=== PATIENT | male | born 1995 | race Caucasian/White ===

== ENCOUNTER 2018-07-16 20:35 | Inpatient (IN) ==
--- NOTE | 2018-07-16 21:35 | PROVIDER DOCUMENTATION ---
HPI-General Adult - General Chief Complaint: Extremity Pain Stated Complaint: EXTREMITY SWELLING Time Seen by Provider: 07/16/18 21:17 Source: patient Allergies/Adverse Reactions: Patient Allergies Allergy/AdvReac Type Severity Reaction Status Date / Time No Known Allergies Allergy Verified 07/16/18 20:46 Home Medications: Home Medication List Medication Instructions Recorded Confirmed Last Taken Type Enalapril Maleate 60 mg PO DAILY 02/24/18 07/16/18 07/02/18 History Furosemide 1 tab PO DAILY 07/16/18 07/16/18 Unknown History Potassium Chloride E.r. [Micro-K] 10 meq PO BID 07/16/18 07/16/18 Unknown History - History of Present Illness -Gen Adult Nature of Presenting Problems: 23yom present to ER with c/o swelling, redness, warm to touch of RLE. Reports swelling x4-5 weeks reports swelling increased this morning. Pt reports being seen here and [facility] ER for same complaint. Pt reports he has had nephrotic syndrome since he was 1 year old. Location of Pain/Injury: reports: lower extremity Pain Radiation: reports: no radiation Quality of Pain: reports: aching, throbbing Onset/Duration: reports: other (4-5 weeks) Timing: reports: still present, getting worse Associated Symptoms: denies: chest pain, fever/chills, shortness of breath, trouble walking Review of Systems - Adult - REVIEW OF SYSTEMS - ADULT Constitutional: reports: no symptoms reported. denies: fever Eyes: reports: no symptoms reported Ears, Nose, Mouth & Throat: reports: no symptoms reported Cardiovascular: reports: no symptoms reported. denies: chest pain, orthopnea, palpitations Respiratory: reports: no symptoms reported. denies: shortness of breath Gastrointestinal: reports: no symptoms reported Genitourinary: reports: no symptoms reported Musculoskeletal: reports: see HPI, other (edema and redness to RLE) Integumentary: reports: no symptoms reported Neurological: reports: no symptoms reported Psychiatric: reports: no symptoms reported Endocrine: reports: no symptoms reported Hematologic/Lymphatic: reports: no symptoms reported Allergic/Immunologic: reports: no symptoms reported All Other Systems: Reviewed and Negative Past History - Adult - PAST MEDICAL HISTORY-ADULT Review of Records: reports: Old Records Reviewed, Nursing Assessment Review, Medications Reviewed Genitourinary: reports: other (Nephrotic syndrome) - PRIOR SURGERIES/PROCEDURES Surgical/Procedure History: reports: tonsillectomy, hernia repair - IMMUNIZATION STATUS Childhood Immunizations: See Nurse Assessment Flu Vaccine: See Nurse Assessment - FAMILY HISTORY Family History: reviewed, not pertinent Physical Exam-General - PHYSICAL EXAM-ADULT Initial Vital Signs Reviewed: Yes - CONSTITUTIONAL General Appearance: alert, no apparent distress - HEAD, EARS, NOSE, MOUTH & THROAT HENMT: moist mucous membranes - NECK Neck: full range of motion, supple, normal inspection - RESPIRATORY Respiratory: lungs clear, normal breath sounds - CARDIOVASCULAR Cardiovascular: tachycardia - GASTROINTESTINAL (ABDOMEN) Abdominal Exam: normal bowel sounds - MUSCULOSKELETAL Back Exam: normal inspection, no vertebral tenderness Extremity: normal range of motion, normal gait, normal capillary refill, erythema (RLE), pedal edema (3+ BLE), tenderness (RLE), other (warm to touch to RLE). negative: deformity - SKIN Integumentary: warm/dry - NEUROLOGIC Neurologic: grossly normal - PSYCHIATRIC Psych/Mental Status: oriented x 3 Progress - PLAN OF CARE/RESULTS Progress/Plan/Lab Results: Vital Signs - 8 hr 07/16/18 20:42 Temperature 100.1 F H Pulse Rate 144 H Respiratory Rate 20 Blood Pressure 167/97 O2 Sat by Pulse Oximetry 97 Orders Category Date Time Status CBC WITH DIFF [HEME] Stat Lab 07/16/18 21:27 Uncollected COMPREHENSIVE METABOLIC PANEL [CHEM] Stat Lab 07/16/18 21:03 Received ua [URINALYSIS PL W/POSS RFLX CULT] [URINALYSIS] Stat Lab 07/16/18 21:27 Uncollected Result Diagrams: 07/16/18 21:03 07/16/18 21:03 - REASSESSMENT Reassessment #1 Time Reassessed: 22:52 (Discussed pt with Dr Henderson, Dr Henderson and myself at beside to assess pt.) Reassessment #2 Time Reassessed: 23:31 (Discussed results with pt and possible admission. Pt agrees with plan. HR 118bpm while in room) Status: improving - XRAY 1 XRAY: Bilateral XRAY Study: Chest Impression: See EMR Report (Reviewed with Dr Henderson, no acute abnormality identified) - CONSULTS/PCP/HOSPITALIST Notification #1 *Consult/PCP/Hospitalist*: Hospitalist, Dr Adkins Time Discussed: 23:44 (possible admission) Reason/Comments: Order doppler in AM Consult Disposition: Admit Departure - Departure Date of Disposition Decision: 07/16/18 Time of Disposition Decision: 22:57 DIAGNOSIS: Nephrotic syndrome Edema Qualifiers: Edema type: unspecified Qualified Code(s): R60.9 - Edema, unspecified Cellulitis Qualifiers: Site of cellulitis: extremity Site of cellulitis of extremity: lower extremity Laterality: right Qualified Code(s): L03.115 - Cellulitis of right lower limb Disposition: ADMITTED INPATIENT 09 Certified Medical Emergency: Emergent Condition: Fair Referrals and Follow-Ups: None,PCP [Primary Care Provider] - - Critical Care Note This patient required my direct & personal management of CC.: No Attestation - Physician/ SAMMY Attestation Patient care was provided by Advanced Practice Provider:: Yes Advanced Practice Provider:: Willie Oquendo Advanced Practice Provider documentation review:: The Mid-level provider documentation, treatment plan and medical decision making was reviewed by the physician who agrees with all treatment and medical decision making by the P. The physician spent face to face time with patient:: Yes Advanced Practice Provider documentation review:: Supervising physician onsite and consulted in the evaluation and care of this patient. The physician did have a face to face encounter with the patient.
[2018-07-16 21:47] LABS: ESTIMATED GFR > 60
[2018-07-16 21:55] LABS: AGAP 12; ALBUMIN 1.6 g/dL (3.5-5.0); ALKALINE PHOSPHATASE 63 U/L (32-122); BUN 21 mg/dL (8-22); CALCIUM 7.7 mg/dL (8.8-10.2); CHLORIDE 99 mmol/L (98-107); COSMO 275; CREATININE 1.1 mg/dL (0.7-1.2); GLUCOSE 106 mg/dL (70-104); GOT 20 U/L (10-34); GPT 20 U/L (10-44); POTASSIUM 3.4 mmol/L (3.5-5.1); SODIUM 136 mmol/L (136-145); TCO2 25 mmol/L (25-35); TOTAL PROTEIN 4.5 g/dL (6.3-8.3)
[2018-07-16 22:00] LABS: BASO# 0.02 X1000 (0.0-0.2); BASO% 0.1 % (0.0-0.8); HEMATOCRIT 46.4 % (42.0-52.0); HEMOGLOBIN 16.8 g/dL (14.0-18.0); IMM GRAN% 0.3 % (0.0-0.5); LYMPH# 0.87 X1000 (1.2-3.4); LYMPH% 2.9 % (20.5-51.1); MCH 31.4 PG (27-31); MCHC 36.2 g/dL (33-37); MCV 86.7 FL (81-99); MONO% 6.7 % (1.7-9.3); MPV 11.3 FL (7.4-10.4); NEUT# 26.69 X1000 (1.4-6.5); PLT 284 X1000 (130-400); RBC 5.35 XMIL (4.7-6.1); RDW 11.7 % (11.5-14.5); WBC 29.68 X1000 (4.8-10.8)
[2018-07-16 22:27] LABS: BANDS 5 % (0-1); LYMPHS 1 % (21-51); MONO 2 % (1-9); SEGS 92 % (42-75)
[2018-07-16 22:37] LABS: BILIRUBIN URINE NEGATIVE (NEGATIVE); BLOOD URINE 2+ (NEGATIVE); CLARITY CLEAR (CLEAR); COLOR YELLOW; GLUCOSE URINE NEGATIVE (NEGATIVE); KETONE URINE NEGATIVE (NEGATIVE); LEUKOCYTES URINE TRACE (NEGATIVE); NITRITE URINE NEGATIVE (NEGATIVE); PH URINE 6.5; UROBILINOGEN URINE NORMAL
[2018-07-16] MEDS ORDERED: NS 1,000 ML IV ONE (22:41)
[2018-07-16] MEDS ORDERED: ROCEPHIN 1 GM in NS 50 ML IV ONE (22:45)
[2018-07-16 22:51] LABS: URINE SOURCE CLEAN CATCH
[2018-07-16 22:56] LABS: URINE BACTERIA 2+ /HFP; URINE EPITHELIAL CELLS <10 /HPF (<10); URINE WBC <10 /HPF (<10)
[2018-07-16] MEDS ORDERED: ROCEPHIN 2 GM in NS 50 ML IV ONE (23:02)
[2018-07-16] MEDS ORDERED: ROCEPHIN ONE ×2 (23:08→23:10)
[2018-07-16] MEDS ORDERED: NS 100 ML ONE (23:11)
[2018-07-16 23:20] LABS: PROTIME 13.7 Seconds (11.0-16.0)
[2018-07-16 23:21] LABS: PTT 37.8 Seconds (22.3-41.8)
[2018-07-16] MEDS ORDERED: TYLENOL PO ONE (23:44)
--- NOTE | 2018-07-17 00:05 | EKG Report ---
Test Performed on : 12/09/2010 6:28:42 PM Test Reason : tachycardia Blood Pressure : / mmHG Vent. Rate : 086 BPM Atrial Rate : 086 BPM P-R Int : 158 ms QRS Dur : 086 ms QT Int : 356 ms P-R-T Axes : 076 060 062 degrees QTc Int : 426 ms * Pediatric ECG analysis * Normal sinus rhythm. Normal ECG No previous ECGs available Unconfirmed Result
--- NOTE | 2018-07-17 06:05 | Diag Imaging Result Doc PS360 ---
EXAM: CHEST-1 VIEW HISTORY: sepsis protocol TECHNIQUE: Chest two view COMPARISON: None. FINDINGS: The lungs are well expanded. The heart is not enlarged. The vessels are not distended. There are no infiltrates. No effusion identified. IMPRESSION: No pneumonia. Electronically signed by Deepak Mcgowan 07/17/2018 6:03 AM
[2018-07-17] MEDS ORDERED: VANCOMYCIN IV PER PHARMACY MISC SCH (08:00)
[2018-07-17 08:01] LABS: BASO# 0.02 X1000 (0.0-0.2); BASO% 0.1 % (0.0-0.8); EOS# 0.02 X1000 (0.0-0.7); EOS% 0.1 % (0.0-10.0); HEMATOCRIT 44.1 % (42.0-52.0); HEMOGLOBIN 15.4 g/dL (14.0-18.0); IMM GRAN# 0.06 X1000 (0.0-0.04); IMM GRAN% 0.3 % (0.0-0.5); LYMPH# 2.09 X1000 (1.2-3.4); LYMPH% 9.8 % (20.5-51.1); MCH 31.4 PG (27-31); MCHC 34.9 g/dL (33-37); MCV 89.8 FL (81-99); MONO# 1.71 X1000 (0.11-0.59); MPV 11.1 FL (7.4-10.4); NEUT% 81.7 % (42.2-75.2); PLT 125 X1000 (130-400); RBC 4.91 XMIL (4.7-6.1); RDW 12.1 % (11.5-14.5)
[2018-07-17 08:18] LABS: AGAP 9; BUN 22 mg/dL (8-22); CALCIUM 7.1 mg/dL (8.8-10.2); CHLORIDE 102 mmol/L (98-107); COSMO 273; ESTIMATED GFR > 60; GLUCOSE 95 mg/dL (70-104); POTASSIUM 3.9 mmol/L (3.5-5.1); SODIUM 135 mmol/L (136-145); TCO2 24 mmol/L (25-35)
[2018-07-17] MEDS: LASIX PO SCH (08:43)
[2018-07-17] MEDS: CLINDAMYCIN 600 MG/D5W 600 MG/50 ML IVPB IV SCH ×2 (08:43→15:02)
[2018-07-17] MEDS: KLOR-CON PO SCH ×2 (08:43→22:44)
[2018-07-17] MEDS: VANCOMYCIN 2,000 MG in NS 500 ML IV SCH ×2 (09:31→22:46)
[2018-07-17 09:43] LABS: LYMPHS 10 % (21-51); MONO 5 % (1-9); SEGS 85 % (42-75)
[2018-07-17] MEDS: VASOTEC PO SCH (10:40)
--- NOTE | 2018-07-17 10:56 | HISTORY AND PHYSICAL ---
PRIMARY CARE PHYSICIAN: None. CHIEF COMPLAINT: Right lower extremity redness, swelling, and warmth to touch that had progressively worsened. HISTORY OF PRESENTING ILLNESS: This is a 23-year-old male who presents to [facility] ER with complaints of right lower extremity edema, erythema, and warmth to touch. States that he has had swelling for about 4-5 weeks that increased on the day of arrival. He went to [facility] recently and received Lasix 80 mg which helped relieve his symptoms he states. He continued the higher dose of diuretic at home for 3 days but over this past weekend the edema increased again. He was started on prednisone taper as he has nephrotic syndrome. Then yesterday he noticed that the area was red and hot to touch and so he came to the emergency room. The workup showed a white blood cell count of 29.68, BUN and creatinine of 21 and 1.1. His calcium is 7.7, albumin 1.6, with a corrected calcium at 9.6. Plasma lactate was normal at 1.1. Urinalysis did show 3+ protein, a trace of white blood cells, 2+ bacteria. We did do a chest x-ray that showed no pneumonia and an EKG that showed normal sinus rhythm at 86. So, he is admitted for further evaluation and treatment. PAST MEDICAL HISTORY: Nephrotic syndrome diagnosed at 18 months with the last exacerbation in 2014 with hospitalization at [facility] in [place] and a pulmonary embolism. PAST SURGICAL HISTORY: Tonsillectomy, ACL repair of the right knee in March of 2008, a cyst removed from the chest wall. FAMILY HISTORY: Reviewed and noncontributory. SOCIAL HISTORY: Currently lives with his father and his girlfriend. Denies any tobacco, alcohol, or illicit drug use. ALLERGIES: He has no known drug allergies. HOME MEDICATIONS: Enalapril 60 mg p.o. daily, Lasix 20 mg p.o. daily, and potassium 10 mEq p.o. b.i.d. LABORATORY DATA: Showed a white blood cell count of 29.68, hemoglobin 16.8, hematocrit 46.4, platelets 284,000. Repeat this morning shows the white blood cell count is down to 21.30. PT and INR of 13.7 and 1. Sodium 136, potassium 3.4, chloride 99, CO2 25, BUN of 21, with a creatinine of 1.1, glucose 106, calcium of 7.7, with an albumin of 1.6, corrected calcium is 9.6. Creatine kinase of 159. Troponin less than 0.010. Plasma lactate of 1.1. Urinalysis showed 3+ protein, 2+ blood, trace white blood cells, and 2+ bacteria. Chest x-ray showed no pneumonia. EKG showed normal sinus rhythm at 86. REVIEW OF SYSTEMS: He denied any fever, chills, blurred vision, dizziness, chest pain, coughing, shortness of breath. Denied any abdominal pain, constipation, diarrhea, burning or hurting with urination. He does have pain to his right lower extremity with tenderness to touch and swelling. PHYSICAL EXAMINATION: VITAL SIGNS: On arrival he had a temperature of 100.1 degrees, pulse of 144, respirations 20, blood pressure 167/97, saturating 97% on room air. Currently his temperature is down to 98.3 and his blood pressure is down to 162/80. GENERAL: This is a 23-year-old male who is lying in the bed and answers questions appropriately. HEENT: Normocephalic, atraumatic. Normal ENT inspection. Oropharynx and nares are clear. Eyes: Pupils are equal, round, reactive to light and accommodation. Extraocular movements are intact. NECK: Normal inspection. Normal range of motion. LUNGS: Clear to auscultation bilaterally with equal lung expansion and chest wall movement. HEART: With regular rate and rhythm. No murmurs, rubs, or gallops. ABDOMEN: Soft, nontender, nondistended. Bowel sounds are present x4 quadrants. MUSCULOSKELETAL: He has 5/5 strength x4 extremities. His right lower extremity is noted to be erythematous, edematous, warm to touch. Skin markings have had been placed surrounding the erythema. No open area noted at this time. NEUROLOGICAL: The cranial nerves 2-12 appear grossly intact. ASSESSMENT: 1. Cellulitis of the right lower extremity. 2. Leukocytosis secondary to #1. 3. Nephrotic syndrome, history of. 4. Rule out deep vein thrombosis. PLAN: He has been admitted to the medical unit. Placed on a regular diet. We are going to obtain a right lower extremity ultrasound to rule out a DVT. Blood cultures x2 and a urine culture are pending. He was placed on clindamycin 600 mg IV q.8, vancomycin per pharmacy protocol. We will continue his home medications as previously identified. He is interested in obtaining an adult warehouse trainer. He has been with a engineer systems and has aged out and has not seen 1 in a couple of years. So we will set him up with outpatient follow-up with Dr. Clemente, Nephrology here in [place] once he is discharged. We will give him the physician referral line also; he needs to obtain a primary care physician. Further orders after being seen by attending. We will recheck a CBC and a BMP in the a.m. I will also discuss with attending on whether not he needs to be on any steroids at this time. Dictated by KISHOR Pennington for Jose A Barron MD cc: KISHOR Pennington MD
--- NOTE | 2018-07-17 13:14 | Extremity Venous Study ---
EXAM: Venous U/S Right Leg HISTORY: RLE edema and redness TECHNIQUE: Right lower extremity venous Doppler ultrasound COMPARISON: None. FINDINGS: There is good flow and compressibility of the right lower extremity. No thrombus identified. Normal augmentation. IMPRESSION: No deep venous thrombosis identified. Electronically signed by Deepak Mcgowan 07/17/2018 1:12 PM
[2018-07-17] MEDS ORDERED: TYLENOL PO PRN (20:59)
[2018-07-17] MEDS ORDERED: MOTRIN PO PRN (20:59)
--- NOTE | 2018-07-18 01:43 | HISTORY AND PHYSICAL ---
SUBJECTIVE: The patient seen and examined by me face to face. All the laboratory images and vital signs were reviewed. This patient presented with redness at the level of his right lower extremity. I do not see any specific wound that can cause this cellulitis. As per the patient, he has been having some pain and swelling for a few weeks now, at least a month. He has a history of kidney problems specifically nephrotic syndrome, and apparently he has not been seen by a check pilot for a very long time, at least 1-1/2 years. His right lower extremity is red and swollen compared with the left lower extremity. The redness is mostly below the knee and is warm too. He is going to be placed on antibiotics vancomycin and clindamycin. We will continue with some of his home medications including furosemide, enalapril and potassium chloride. Depending on his progress we will consult either the Infectious Disease Department And/or the Nephrology Department, but for sure I will try to get an appointment with the Nephrology Department as an outpatient if they do not see the patient as an inpatient. I agree with the rest of the assessment, plan and treatment placed by the nurse practitioner. cc: Jose A Barron MD
[2018-07-18] MEDS: CLINDAMYCIN 600 MG/D5W 600 MG/50 ML IVPB IV SCH ×4 (01:52→23:35)
[2018-07-18 08:17] LABS: AGAP 9; BUN 14 mg/dL (8-22); CALCIUM 7.2 mg/dL (8.8-10.2); CHLORIDE 103 mmol/L (98-107); COSMO 274; CREATININE 0.9 mg/dL (0.7-1.2); ESTIMATED GFR > 60; GLUCOSE 85 mg/dL (70-104); POTASSIUM 3.4 mmol/L (3.5-5.1); SODIUM 137 mmol/L (136-145); TCO2 25 mmol/L (25-35)
[2018-07-18 08:20] LABS: BASO# 0.01 X1000 (0.0-0.2); BASO% 0.1 % (0.0-0.8); EOS# 0.16 X1000 (0.0-0.7); EOS% 1.3 % (0.0-10.0); HEMATOCRIT 40.5 % (42.0-52.0); HEMOGLOBIN 13.8 g/dL (14.0-18.0); IMM GRAN# 0.05 X1000 (0.0-0.04); IMM GRAN% 0.4 % (0.0-0.5); LYMPH# 1.76 X1000 (1.2-3.4); LYMPH% 13.9 % (20.5-51.1); MCH 30.9 PG (27-31); MCHC 34.1 g/dL (33-37); MCV 90.6 FL (81-99); MONO# 1.39 X1000 (0.11-0.59); NEUT# 9.26 X1000 (1.4-6.5); NEUT% 73.3 % (42.2-75.2); PLT 204 X1000 (130-400); RBC 4.47 XMIL (4.7-6.1); RDW 12.2 % (11.5-14.5); WBC 12.63 X1000 (4.8-10.8)
[2018-07-18] MEDS: VASOTEC PO SCH (09:38)
[2018-07-18] MEDS: KLOR-CON PO SCH ×2 (09:39→21:28)
[2018-07-18] MEDS: LASIX PO SCH (09:40)
[2018-07-18] MEDS: VANCOMYCIN 2,000 MG in NS 500 ML IV SCH ×2 (09:41→21:28)
[2018-07-18] MEDS ORDERED: NICOTINE GUM BUCCAL PRN (14:40)
[2018-07-18] MEDS ORDERED: NICODERM PATCH TD PRN (14:43)
--- NOTE | 2018-07-18 23:25 | PROGRESS NOTE ---
DATE: 07/18/2018 SUBJECTIVE: This patient is feeling about the same compared with yesterday. He has chronic lower extremity swelling and a history of nephrotic syndrome. His right lower extremity is not only swollen, but red and warm. I do not see any big source of infection. I have placed this patient on vancomycin and clindamycin as well. His kidney function is stable, and I basically continue with his home medications. I contacted. Nephrology Department, Dr. Clemente. Now he will evaluate this patient. I have placed the consult. For now, we will continue with the same management. OBJECTIVE: Vital Signs: Temperature 98.7 degrees, pulse 97, respiratory rate 18, blood pressure 157/84, oxygen saturation 97% on room air. HEENT: Head normocephalic, no trauma. PERRLA. Neck: Supple. No JVD. No masses. Central trachea. Chest: Clear to auscultation. No wheezing. No rales. Abdomen: Soft, nontender, nondistended. No hepatosplenomegaly. Extremities: Right lower extremity swelling 3+. He does have redness mostly below the knee, all the way down to the foot. It is warm and painful to palpation. Left lower extremity edematous with no signs of infection, 2 to 3+ swelling. Neurological: The patient is alert and oriented x3. No focal deficits. LABORATORY: WBC 12.6, hemoglobin 13.8, hematocrit 40.5, platelets 204,000. Sodium 137, potassium 3.4, chloride 103, bicarbonate 25, BUN 14, creatinine 0.9, glucose 85, calcium 7.2. Albumin 1.6. ASSESSMENT AND PLAN: 1. Right lower extremity cellulitis. Continue with the same management. WBC is trending down nicely, he is still complaining of lower extremity pain and swelling, that it is really difficult for him even to walk. I will continue with the same management for now. 2. Leukocytosis, likely secondary to #1. 3. History of nephrotic syndrome. Urinalysis showed protein, white blood cells as well. Albumin is low at 1.6. The case has been discussed with Nephrology Department, and I have placed a consult for evaluation. 4. Deep vein thrombosis of the right lower extremity has been ruled out. Negative ultrasound. 5. Hypertension. Continue with his home medication. He is on enalapril. 6. He used to follow a pediatric pathologist, Dr. Alanis. He gave us his phone number so we can get some records at [phone]. cc: Jose A Barron MD
[2018-07-19 08:13] LABS: BASO# 0.03 X1000 (0.0-0.2); BASO% 0.4 % (0.0-0.8); EOS# 0.21 X1000 (0.0-0.7); EOS% 2.5 % (0.0-10.0); HEMATOCRIT 41.4 % (42.0-52.0); HEMOGLOBIN 14.5 g/dL (14.0-18.0); IMM GRAN# 0.05 X1000 (0.0-0.04); IMM GRAN% 0.6 % (0.0-0.5); LYMPH# 1.09 X1000 (1.2-3.4); LYMPH% 12.8 % (20.5-51.1); MCH 31.4 PG (27-31); MCV 89.6 FL (81-99); MONO# 1.03 X1000 (0.11-0.59); MONO% 12.1 % (1.7-9.3); MPV 10.7 FL (7.4-10.4); NEUT# 6.11 X1000 (1.4-6.5); NEUT% 71.6 % (42.2-75.2); PLT 209 X1000 (130-400); RBC 4.62 XMIL (4.7-6.1); RDW 11.9 % (11.5-14.5); WBC 8.52 X1000 (4.8-10.8)
[2018-07-19 08:24] LABS: ESTIMATED GFR > 60
[2018-07-19 08:28] LABS: AGAP 8; ALBUMIN 1.1 g/dL (3.5-5.0); ALKALINE PHOSPHATASE 46 U/L (32-122); BUN 11 mg/dL (8-22); CALCIUM 7.2 mg/dL (8.8-10.2); CHLORIDE 107 mmol/L (98-107); COSMO 277; CREATININE 0.9 mg/dL (0.7-1.2); GLUCOSE 95 mg/dL (70-104); GOT 15 U/L (10-34); GPT 14 U/L (10-44); POTASSIUM 3.7 mmol/L (3.5-5.1); SODIUM 139 mmol/L (136-145); TCO2 24 mmol/L (25-35); TOTAL PROTEIN 3.9 g/dL (6.3-8.3)
[2018-07-19] MEDS: KLOR-CON PO SCH ×2 (10:28→21:38)
[2018-07-19] MEDS: CLINDAMYCIN 600 MG/D5W 600 MG/50 ML IVPB IV SCH ×3 (10:28→22:36)
[2018-07-19] MEDS: LASIX PO SCH (10:28)
[2018-07-19] MEDS: VASOTEC PO SCH (10:29)
--- NOTE | 2018-07-19 13:57 | PROGRESS NOTE ---
DATE: 07/19/2018 SUBJECTIVE: This patient is feeling much better compared with yesterday. The redness is better. The pain is better. Nephrology Department has been consulted; pending recommendations. OBJECTIVE: Vital Signs: Temperature 98.4, pulse 94, respiratory rate 16, blood pressure 144/71, oxygen saturation 95% on room air. HEENT: Head normocephalic. No trauma. PERRLA. Neck supple. No JVD. No masses. Central trachea. Chest clear to auscultation. No wheezing. No rales. Abdomen soft, nontender, nondistended. No hepatosplenomegaly. Extremities: Bilateral lower extremity edema mostly on the right side. His right lower extremity has some redness that is getting better, 3+ pitting edema. No open wound. Neurologic: The patient is alert and oriented x3. No focal deficits. LABORATORY: WBC 8.5, hemoglobin 14.5, hematocrit 41.4, platelets 209,000. Sodium 139, potassium 3.7, chloride 107, bicarbonate 24. BUN 11, creatinine 0.9, glucose 95. Calcium 7.2. Albumin 1.1. ASSESSMENT AND PLAN: 1. Right lower extremity cellulitis. Continue with same management. WBC is normal today. He still has some redness but it is getting much better. His lower extremities are swollen due to his kidney problems. 2. Leukocytosis, resolved. 3. History of nephrotic syndrome. Urinalysis showed protein white blood cells as well as albumin is 1.1. The case has been discussed with the Nephrology Department and they will, hopefully, evaluate this patient today. 4. Deep vein thrombosis of the right lower extremity has been ruled out. Negative ultrasound. 5. Hypertension. Continue home medication. He is on enalapril but probably he needs to be on CARL inhibitors or angiotensin II receptor blockers. 6. He used to follow up with a primary care pediatrician, Dr. Kruse, phone #: [phone]. Overall, this patient is doing much better. Pending nephrology evaluation and recommendations. Hopefully, this patient can be discharged in the next 24 to 48 hours. cc: Jose A Barron MD
--- NOTE | 2018-07-19 17:18 | NEPHROLOGY CONSULTATION ---
DATE: 07/19/2018 REASON FOR CONSULTATION: Nephrotic syndrome. HISTORY OF PRESENT ILLNESS: Mr. Dorado is a 23-year-old white male who has been under the care of [facility] for many years for management of focal glomerulosclerosis. He states he took cyclosporin and mycophenolate for many years with good control of his illness. These medications were stopped, and he is not real clear why. At any rate, he suffered a recurrence and was treated with several cycles of rituximab with improvement. He said his last dose of rituximab was probably 1-1/2 years ago. He recently went to the hospital at [place] because of worsening swelling and was told that he had recurrence, and outpatient appointment was made with Dr. Altman but he has not yet seen him. Because of worsening edema, he presented to the emergency room at this facility and was admitted. There has been very little improvement in his symptoms since admission, but he has no shortness of breath. Primary lower extremity swelling. He also had redness on the right foot which was alarming to him and part of why he presented. PAST MEDICAL HISTORY: As above. HOME MEDICATIONS: Enalapril, furosemide, potassium chloride. ALLERGIES: None. SOCIAL HISTORY: He lives with his father and his girlfriend. No alcohol or tobacco. FAMILY HISTORY: Otherwise noncontributory. REVIEW OF SYSTEMS: Otherwise noncontributory. PHYSICAL EXAMINATION: Blood pressure is 144/71, heart rate 94, respirations 16 , afebrile. General: No acute distress. Skin is warm and dry. No erythema on the leg. Conjunctivae are pink. Pupils are equal. Oropharynx is clear. Neck is supple. Trachea is midline. No jugular venous distention. Heart is regular. No gallops or murmurs. Lungs are equal. No crackles or wheezes. Abdomen is soft, nontender. Bowel sounds are present. No organomegaly or masses. Extremities have 3+ edema. No clubbing or cyanosis. IMPRESSION: Nephrotic syndrome, presumably secondary to focal glomerulosclerosis based on biopsy many years ago at [facility]. He has achieved good control with rituximab in the past. I will discuss this with Oncology and give him a single dose of Rituxan in the hospital, and then we will arrange for outpatient followup in the office. Otherwise, continue current medications. cc: MD ARLEN Jack
[2018-07-20] MEDS: CLINDAMYCIN 600 MG/D5W 600 MG/50 ML IVPB IV SCH (07:53)
[2018-07-20 08:09] LABS: BASO# 0.02 X1000 (0.0-0.2); BASO% 0.2 % (0.0-0.8); EOS# 0.28 X1000 (0.0-0.7); EOS% 2.4 % (0.0-10.0); HEMATOCRIT 43.1 % (42.0-52.0); IMM GRAN# 0.05 X1000 (0.0-0.04); IMM GRAN% 0.4 % (0.0-0.5); LYMPH# 0.83 X1000 (1.2-3.4); LYMPH% 7.2 % (20.5-51.1); MCH 31.1 PG (27-31); MCHC 34.8 g/dL (33-37); MCV 89.4 FL (81-99); MONO% 9.6 % (1.7-9.3); MPV 10.3 FL (7.4-10.4); NEUT# 9.22 X1000 (1.4-6.5); NEUT% 80.2 % (42.2-75.2); PLT 243 X1000 (130-400); RBC 4.82 XMIL (4.7-6.1); RDW 11.9 % (11.5-14.5)
[2018-07-20 08:25] LABS: AGAP 9; ALBUMIN 1.5 g/dL (3.5-5.0); ALKALINE PHOSPHATASE 53 U/L (32-122); BUN 9 mg/dL (8-22); CALCIUM 7.7 mg/dL (8.8-10.2); CHLORIDE 106 mmol/L (98-107); COSMO 280; ESTIMATED GFR > 60; GLUCOSE 106 mg/dL (70-104); GOT 16 U/L (10-34); GPT 14 U/L (10-44); POTASSIUM 3.3 mmol/L (3.5-5.1); SODIUM 141 mmol/L (136-145); TCO2 26 mmol/L (25-35); TOTAL BILIRUBIN < 0.15 mg/dL (0.20-1.00); TOTAL PROTEIN 4.5 g/dL (6.3-8.3)
[2018-07-20] MEDS: KLOR-CON PO SCH ×2 (09:49→21:25)
[2018-07-20] MEDS: LASIX PO SCH (09:49)
[2018-07-20] MEDS: VASOTEC PO SCH (09:49)
[2018-07-20] MEDS ORDERED: VANCOMYCIN 1,200 MG in NS 250 ML IV SCH (10:00)
[2018-07-20] MEDS ORDERED: KLOR-CON PO ONE (11:35)
[2018-07-20] MEDS ORDERED: LASIX PO ONE (12:16)
--- NOTE | 2018-07-20 12:38 | PROGRESS NOTE ---
DATE: 07/20/2018 SUBJECTIVE: He feels a little bit better. He is lying in bed today and taking a nap with his nasal CPAP. OBJECTIVE: Vitals: Blood pressure is 151/78, heart rate is 137, at least that was recorded. He has not been tachycardic that high. He is afebrile, 98.9, respiratory rate of 18, blood pressure 151/78, 97% on room air. Cardiovascular: Regular rate and rhythm. Pulmonary: Bilateral breath sounds. Clear to auscultation. GI: Soft, nontender, nondistended. Bowel sounds were positive. Extremity: No clubbing or cyanosis. Lymphatic: No peripheral edema. Neurological: Nonfocal. LABORATORY DATA: White count 11, hemoglobin and hematocrit 15 and 43, platelets 243,000. Potassium 3.3, creatinine 1. It has been fine since he has been here. PROBLEM LIST: 1. Right lower extremity cellulitis. He seems to be doing better. I am not sure what it looked like to begin with, but a little bit of increase in his white count today. I am not sure. They have ruled out DVT. I am going to bump up his clindamycin because he is 237 pounds and we will see how he does. He is on Lasix. I do not really want to push the dose because he has nephrotic syndrome and chronic renal failure. We will see. 2. History of nephrotic syndrome. Dr. Clemente is following. Creatinine is stable. We are going to continue to follow. Dr. Clemente did see the patient and it looks like they are talking about giving him Rituxan, which I do not know if we can give that here sure. I am not sure if he is going to be transferred [facility] DISPOSITION: Pending his clinical status repeat his CBC. I think he may need another day or two of IV antibiotics and we will see how he does. We will monitor his kidney function closely on a diuretic, Vasotec and vancomycin. cc: Jak Adkins MD
[2018-07-20] MEDS: CLINDAMYCIN 900 MG/D5W 900 MG/50 ML IVPB IV SCH ×2 (13:15→21:25)
[2018-07-20 19:50] LABS: UR CREATININE 138.9 mg/dL (14-26)
[2018-07-20 19:57] LABS: UR CREATININE TOTAL 1527.9 mg/24 (800-1800)
[2018-07-20 20:57] LABS: UR PROTEIN 502.4 mg/dL
[2018-07-21] MEDS: VANCOMYCIN 1,200 MG in NS 250 ML IV SCH ×2 (03:56→22:37)
[2018-07-21] MEDS: CLINDAMYCIN 900 MG/D5W 900 MG/50 ML IVPB IV SCH ×3 (06:31→21:31)
[2018-07-21 07:38] LABS: BASO# 0.02 X1000 (0.0-0.2); BASO% 0.2 % (0.0-0.8); EOS# 0.53 X1000 (0.0-0.7); EOS% 6.4 % (0.0-10.0); HEMATOCRIT 42.7 % (42.0-52.0); HEMOGLOBIN 14.4 g/dL (14.0-18.0); IMM GRAN# 0.02 X1000 (0.0-0.04); IMM GRAN% 0.2 % (0.0-0.5); LYMPH# 1.36 X1000 (1.2-3.4); LYMPH% 16.5 % (20.5-51.1); MCH 30.8 PG (27-31); MCHC 33.7 g/dL (33-37); MCV 91.2 FL (81-99); MONO# 1.12 X1000 (0.11-0.59); MONO% 13.6 % (1.7-9.3); MPV 10.7 FL (7.4-10.4); NEUT# 5.21 X1000 (1.4-6.5); NEUT% 63.1 % (42.2-75.2); PLT 228 X1000 (130-400); RBC 4.68 XMIL (4.7-6.1); RDW 12.2 % (11.5-14.5); WBC 8.26 X1000 (4.8-10.8)
[2018-07-21 07:56] LABS: AGAP 5; BUN 11 mg/dL (8-22); CALCIUM 7.4 mg/dL (8.8-10.2); CHLORIDE 107 mmol/L (98-107); COSMO 277; CREATININE 1.2 mg/dL (0.7-1.2); ESTIMATED GFR > 60; GLUCOSE 95 mg/dL (70-104); POTASSIUM 4.2 mmol/L (3.5-5.1); SODIUM 139 mmol/L (136-145); TCO2 27 mmol/L (25-35)
[2018-07-21] MEDS ORDERED: BENADRYL PO ONE (09:07)
[2018-07-21] MEDS ORDERED: TYLENOL PO ONE ×2 (09:08→10:00)
[2018-07-21] MEDS ORDERED: MISC. PHARMACY COMMUNICATION SCH (09:15)
[2018-07-21] MEDS: LASIX PO SCH (09:24)
[2018-07-21] MEDS: KLOR-CON PO SCH ×2 (09:24→20:28)
[2018-07-21] MEDS: VASOTEC PO SCH (09:24)
--- NOTE | 2018-07-21 12:39 | NEPHROLOGY PROGRESS NOTE ---
DATE: 07/21/2018 TIME SEEN: 0900. SUBJECTIVE: Mr. Dorado is resting quietly in bed. He states that he is feeling just a little bit better. Improved abdominal discomfort. OBJECTIVE: Vital Signs: Temperature 97.5 degrees, blood pressure 139/64, heart rate 87, respirations 18. He is on room air. Last recorded saturation is 100%. He has had 870 in. He has had 0 recorded out, though patient states he has been voiding adequate amounts. Labs: Sodium is 139, potassium 4.2, chloride 107, CO2 27, BUN 11, creatinine 1.2, glucose 95. The patient has an anion gap of 5. Calcium is 7.4. Previous albumin down to 1.5. White count 8.26, hemoglobin 14.4, hematocrit 42.7, with a platelet count of 228,000. The patient had a 24-hour urine indicating a creatinine clearance of 106%. Urine total protein in 24 hours of 5.5 g. Random vancomycin level yesterday was down to 4.5. PHYSICAL EXAMINATION: General: This is a 23-year-old white male who is resting quietly in bed. Head of the bed is elevated. He has been resting. He appears in no acute distress. Skin: Warm and dry. HEENT: Normocephalic, atraumatic. Conjunctivae pale pink. He has FENG. Mucous membranes dry. Neck: Supple. Trachea midline. No evidence of JVD. Cardiovascular: He is regular rate and rhythm. He is without murmur or gallop. Lungs: Clear to auscultation bilaterally. Equal excursion. On room air. Abdomen: Soft, nontender. Positive bowel sounds. Genitourinary: Not inspected. Adequate urine out to void. Extremities: Continues with 3+ lower extremity edema and some to the upper extremity, forearm/hand area. Neurological: Alert and oriented x3. ASSESSMENT AND PLAN: Nephrotic syndrome. Patient has a 24-hour urine indicating 5.5Gm of proteinuria. 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 The patient had a biopsy performed at [facility] since the age of 18 months. He had attained good control with rituximab in the past. He has no local oncologist. Secondary to patient's age and now having exacerbation of his FSGS we will consult Dr. Zimmer. We will attempt to get patient's 1st dose of rituximab this week, followed by 3 further doses. We will plan for follow up in our office within 2 to 3 weeks, with further follow-up on labs. I have sent Dr. Zimmer a note in regards with patient care. She has accepted the patient and will set this up on an outpatient basis at the end of the week. I would like to thank you for allowing us to follow with this patient. Dictated by KISHOR Rizzo for Josep Clemnete MD cc: KISHOR Rizzo MD [facility]
--- NOTE | 2018-07-21 13:22 | PROGRESS NOTE ---
DATE: 07/21/2018 SUBJECTIVE: Patient denies having any acute complaints this morning. He states that he feels well. OBJECTIVE: Vital Signs: Temperature 97.5 degrees, pulse is 87 per minute, respiratory rate 18 per minute, blood pressure 139/64, pulse oximetry 97% on room air. General: Patient is alert and oriented x3. He does not appear to be in any acute distress. Cardiovascular System: First and second heart sounds are audible without any murmurs or gallops. Respiratory System: Bilateral lung air entry is good without any rales or rhonchi. Gastrointestinal: Abdomen is soft and nontender on palpation. Normal bowel sounds are present. Extremities: Bilateral leg edema is present. Right lower leg appears to be very erythematous and warm to touch. DIAGNOSTIC DATA: CBC and basic metabolic panel are both nondiagnostic this morning. He did have a total protein 24-hour result of 5.5 g yesterday. IMPRESSION: 1. Right lower extremity cellulitis. 2. Nephrotic syndrome. PLAN: The patient will be continued on vancomycin, along with clindamycin for now until his cellulitis improves. He has been followed by Nephrology for his nephrotic syndrome and they have identified him to have focal glomerulosclerosis since patient had a biopsy performed at [facility] in the past. They have scheduled him to see Dr. Zimmer as outpatient to start 1st dose of rituximab later this week. We will hopefully be able to discharge home in the next day or two and let him follow up as outpatient with Dr. Zimmer. cc: Andrea Crawley MD
[2018-07-22] MEDS: CLINDAMYCIN 900 MG/D5W 900 MG/50 ML IVPB IV SCH (06:24)
[2018-07-22 07:46] LABS: ALBUMIN 1.3 g/dL (3.5-5.0); CALCIUM 7.1 mg/dL (8.8-10.2); CREATININE 1.7 mg/dL (0.7-1.2); PHOSPHORUS 3.9 mg/dL (2.7-4.5); POTASSIUM 4.5 mmol/L (3.5-5.1)
[2018-07-22] MEDS ORDERED: MYCELEX 1% CREAM TOP SCH (09:00)
[2018-07-22] MEDS: KLOR-CON PO SCH (10:07)
[2018-07-22] MEDS: LASIX PO SCH (10:07)
[2018-07-22] MEDS: VASOTEC PO SCH (10:07)
[2018-07-22 13:45] VITALS: BP 151/107
--- NOTE | 2018-07-23 05:08 | DISCHARGE SUMMARY ---
ADMISSION DATE: 07/17/2018 DISCHARGE DATE: 07/22/2018 DIAGNOSES: 1. Cellulitis right lower extremity. 2. Nephrotic syndrome secondary to focal glomerulosclerosis based on biopsy at [facility]. DIAGNOSTICS: 1. 07/16/2018 Chest x-ray revealed no pneumonia. Lungs are well expanded. Heart is not enlarged. Vessels are not distended. There are no infiltrates. No effusion identified. 2. Right lower extremity venous Doppler ultrasound reveals no deep vein thrombosis identified. 3. Blood cultures x2 revealed no growth after 48 hours. 4. Urine culture revealed no growth. CONSULTANTS: Dr. Clemente of Nephrology. HOSPITAL COURSE: Mr. Dorado presented to the emergency room complaining of right lower extremity redness, swelling and warmth with progressive edema. He was found to have cellulitis. He was treated with clindamycin IV. He has been transitioned over to oral clindamycin for discharge. He was initially also treated with vancomycin dosed per pharmacy. Today, his leg does look better. He has less edema. The redness has decreased. He initially had a white count of 12. Today, his white count is down to 8.2. He has remained afebrile. He has a history of nephrotic syndrome. He stated his first treatment was at [id number] at [facility]. He stated that his last treatment was a year and half ago with our Rituximab which he does have good response to. He was evaluated by Dr. Clemente. We attempted to give Rituximab in the hospital and after we did discuss with Dr. Babs Zimmer. It was decided that she would set this up in her office on the at 02:00 in the afternoon. DISCHARGE VITAL SIGNS: Blood pressure is 147/60 with heart rate of 90, respirations 18, temperature is 98.6 degrees oral with room air saturations 96 to 98%. DISCHARGE PHYSICAL EXAMINATION: Cardiovascular: Regular rate and rhythm. S1 and S2 appreciated. Pulmonary: Breath sounds are clear. No increased work of breathing noted. Gastrointestinal: Abdomen is soft, nontender, and nondistended with bowel sounds in all 4 quadrants. Extremities: He continues with 3+ lower extremity edema. Cellulitis to his right foot has improved. DISCHARGE MEDICATIONS: 1. Enalapril 60 mg p.o. daily. 2. Lasix 20 mg p.o. daily. 3. Micro-K 10 mEq p.o. b.i.d. 4. Clindamycin 300 mg p.o. q.6 hours. 5. Mycelex cream apply to groin b.i.d. FOLLOW-UP: 1. Dr. Babs Zimmer on 07/23/2018 at 02:00 in the afternoon. 2. Dr. Clemente 08/12/2018 at 11:30 in the morning. 3. He is also encouraged to keep his appointment with Dr. Altman. TIME SPENT: This is a greater than 30 minute discharge. Dictated by KISHOR Melchor for Raj Mueller MD This chart was documented by, KISHOR Melchor and accurately reflects the services performed, treatment plan and medical decisions as attested by the providers signature Raj Mueller MD. cc: KISHOR Melchor MD
== END 2018-07-22 14:53 | disposition home or self-care (01) | DRG 872 ==
LOC: P.ED 20:35 → P.MEDSURG 07-17 00:41 → SUATTDRO 07-17 00:41
PROVIDERS: ATTEND Internal Medicine
CPT/HCPCS: 36415; 71010; 71045; 80048; 80053; 80069; 80202; 81001; 81050; 82550; 82575; 83605; 84156; 84484; 85025; 85610; 85730; 87040; 87088; 93005; 93971; 94761; 96361; 96374; 99285; A9270; J0696; J3370; J7030; J7040; J7050

== ENCOUNTER 2018-09-05 07:24 | Inpatient (IN) ==
--- NOTE | 2018-09-05 07:53 | EKG Report ---
Test Performed on : 09/05/2018 07:42:44 AM Test Reason : dizzy Blood Pressure : / mmHG Vent. Rate : 104 BPM Atrial Rate : 104 BPM P-R Int : 168 ms QRS Dur : 086 ms QT Int : 330 ms P-R-T Axes : 051 030 041 degrees QTc Int : 433 ms Sinus tachycardia. Otherwise normal ECG When compared with ECG of 09-DEC-2010 18:28, PREVIOUS ECG IS PRESENT Unconfirmed Result
[2018-09-05 08:00] LABS: BE -2.8 mmoll (-3.0-3.0); BLOOD TYPE ARTERIAL; HCO3-(ACT) 22.6 mmoll (20.0-26.0); METHB 1.4 % (0.0-1.5); O2(CT) 23.3 mL/dL (15.0-23.0); O2HB 94.9 % (95.0-99.0); PCO2(98.6) 27 mmHg (35-45); PO2(98.6) 100 mmHg (60-100); SAMPLE BLOOD; SAO2 98.9 % (95.0-100.0); THB 17.4 g/dL (11.5-17.4); pH(98.6) 7.46 (7.35-7.45)
[2018-09-05 08:01] LABS: BILIRUBIN URINE NEGATIVE (NEGATIVE); BLOOD URINE 3+ (NEGATIVE); CLARITY CLEAR (CLEAR); COLOR YELLOW; KETONE URINE TRACE mg/dL (NEGATIVE); LEUKOCYTES URINE NEGATIVE (NEGATIVE); NITRITE URINE NEGATIVE (NEGATIVE); URINE SOURCE CLEAN CATCH; UROBILINOGEN URINE NORMAL
[2018-09-05 08:02] LABS: URINE BACTERIA 1+ /HFP; URINE EPITHELIAL CELLS <10 /HPF (<10)
[2018-09-05 08:03] LABS: UR AMPHETAMINES QUAL NONE DETECTED (NONE DETECT); UR BARBITUATES QUAL NONE DETECTED (NONE DETECT); UR BENZODIAZEPIN QUAL NONE DETECTED (NONE DETECT); UR CANNABINOIDS QUAL PRESUMPTIVE POSITIVE (NONE DETECT); UR COCAINE QUAL NONE DETECTED (NONE DETECT); UR METHADONE QUAL NONE DETECTED (NONE DETECT); UR METHAMPHETAMINE QUAL NONE DETECTED (NONE DETECT); UR OPIATES QUAL NONE DETECTED (NONE DETECT); UR OXYCODONE QUAL NONE DETECTED (NONE DETECT); UR PCP QUAL NONE DETECTED (NONE DETECT); UR PROPOXYPHENE QUAL NONE DETECTED (NONE DETECT); UR TCA QUAL NONE DETECTED (NONE DETECT)
[2018-09-05 08:15] LABS: ALLEN TEST YES; MODALITY CANNULA
[2018-09-05 08:19] LABS: BASO# 0.04 X1000 (0.0-0.2); BASO% 0.2 % (0.0-0.8); HEMATOCRIT 41.3 % (42.0-52.0); HEMOGLOBIN 14.7 g/dL (14.0-18.0); IMM GRAN# 0.15 X1000 (0.0-0.04); IMM GRAN% 0.9 % (0.0-0.5); LYMPH# 2.19 X1000 (1.2-3.4); LYMPH% 12.4 % (20.5-51.1); MCH 30.8 PG (27-31); MCHC 35.6 g/dL (33-37); MCV 86.4 FL (81-99); MONO# 0.73 X1000 (0.11-0.59); MONO% 4.1 % (1.7-9.3); MPV 10.6 FL (7.4-10.4); NEUT# 13.79 X1000 (1.4-6.5); NEUT% 78.4 % (42.2-75.2); PLT 356 X1000 (130-400); RBC 4.78 XMIL (4.7-6.1); RDW 12.8 % (11.5-14.5)
[2018-09-05 08:35] LABS: AGAP 13; ALBUMIN 2.6 g/dL (3.5-5.0); ALKALINE PHOSPHATASE 81 U/L (32-122); BUN 9 mg/dL (8-22); CALCIUM 8.6 mg/dL (8.8-10.2); CHLORIDE 102 mmol/L (98-107); COSMO 274; CREATININE 1.1 mg/dL (0.7-1.2); ESTIMATED GFR > 60; GLUCOSE 132 mg/dL (70-104); GOT 27 U/L (10-34); GPT 24 U/L (10-44); POTASSIUM 3.9 mmol/L (3.5-5.1); SODIUM 137 mmol/L (136-145); TCO2 22 mmol/L (25-35); TOTAL PROTEIN 5.6 g/dL (6.3-8.3)
[2018-09-05 08:38] LABS: CK PROFILE 359 U/L (24-204)
[2018-09-05 08:54] LABS: INR 0.93; PROTIME 12.9 Seconds (11.0-16.0)
[2018-09-05 08:55] LABS: PTT 37.7 Seconds (22.3-41.8)
[2018-09-05 08:57] LABS: CK INDEX 2.6 (0.0-2.5); CK-MB 9.51 ng/mL (0.0-5.0)
--- NOTE | 2018-09-05 09:28 | Diag Imaging Result Doc PS360 ---
CT HEAD W/O CONTRAST - 09/05/2018 INDICATION: seizure COMPARISON: 12/09/2010 FINDINGS: The ventricles and sulci are normal in size and contour. No intracranial mass or hemorrhage. The skull is intact. The sinuses mastoids and middle ears are clear. IMPRESSION: Negative exam. This exam was performed using automated exposure control, adjustment of mA or kV according to patient size, and/or use of iterative reconstruction technique Electronically signed by Kirit Alba 09/05/2018 9:25 AM
[2018-09-05] MEDS ORDERED: ATIVAN ONE (10:57)
[2018-09-05] MEDS ORDERED: ATIVAN IV ONE (11:00)
[2018-09-05] MEDS ORDERED: NS 1,000 ML IV ONE (11:43)
--- NOTE | 2018-09-05 12:20 | Diag Imaging Result Doc PS360 ---
EXAM: CHEST-1 VIEW - 09/05/2018 HISTORY: r/o sepsis TECHNIQUE: One view chest COMPARISON: 05/16/2019 FINDINGS: Heart size appears within normal limits. There is apparent mild infrahilar infiltrate on the left. There is mild prominence of infrahilar markings on the right. There is no dense consolidation, pleural effusion, or pneumothorax identified. IMPRESSION: Mild infrahilar infiltrate on the left and possibly on the right. Bronchopneumonia cannot be excluded. Electronically signed by Avila Valle 09/05/2018 12:18 PM
[2018-09-05 13:08] LABS: INR 0.98; PROTIME 13.5 Seconds (11.0-16.0)
[2018-09-05 13:09] LABS: PTT 38.4 Seconds (22.3-41.8)
[2018-09-05 13:39] LABS: CK-MB 12.35 ng/mL (0.0-5.0)
[2018-09-05] MEDS: CLINDAMYCIN 600 MG/D5W 600 MG/50 ML IVPB IV SCH (16:50)
[2018-09-05] MEDS: ZOSYN 3.375 GM in NS 50 ML IV SCH ×2 (16:50→21:45)
[2018-09-05] MEDS ORDERED: ATIVAN IV PRN (17:08)
--- NOTE | 2018-09-05 17:12 | Diag Imaging Result Doc PS360 ---
MRI BRAIN W/O CONTRAST - 09/05/2018 INDICATION: new seizure COMPARISON: Head CT 09/05/2018 FINDINGS: There is no area of restricted diffusion. The ventricles and sulci are normal in size and contour. No intracranial mass or hemorrhage. Midline structures including the optic chiasm and pituitary are normal. IMPRESSION: Negative exam. Electronically signed by Kirit Alba 09/05/2018 5:10 PM
[2018-09-05] MEDS: PRILOSEC PO SCH (18:04)
[2018-09-05] MEDS: PREDNISONE PO SCH (18:04)
[2018-09-05] MEDS ORDERED: KEPPRA 1,000 MG/NS 1,000 MG/100 ML IVPB IV ONE (18:11)
--- NOTE | 2018-09-05 21:15 | NEPHROLOGY CONSULTATION ---
DATE: 09/05/2018 REASON FOR ADMISSION: Altered mental status with recent fall, possible seizure. REASON FOR CONSULT: Nephrotic syndrome. HISTORY OF PRESENT ILLNESS: Mr. Dorado is a 23-year-old white male who has been under the care of [facility] up until just recently of this past year. He is known to have focal glomerulosclerosis. He had taken cyclosporine and mycophenolate and prednisone for years. His illness had been under good control until July at which time we met this gentleman at [facility]. He has been under the care of Dr. Alanis for many years for focal glomerulosclerosis, was treated with multiple drugs with a history of rituximab also in the past. He has stopped his therapy at this time. He was seen in the hospital in July, set up after his recent discharge from [place] to go to see Dr. Babs Zimmer at which time he was to receive 4 doses of rituximab. He was seen in our office on 08/13/2018. He was prescribed prednisone 60mg daily with omeprazole 40 mg, enalapril 60 mg and Lasix 40 mg p.r.n. The patient states his home medications are enalapril, furosemide, and potassium chloride. He has been taking the last three medications sporadically. PAST MEDICAL HISTORY: As mentioned above. Due to patient's condition, we were called this morning from the emergency room, spoke to Dr. Henderson. It was stated that he was sleeping on a friend's couch. His girlfriend was on another couch in the room. She heard him fall. She noticed that they put him back into the couch at which time he proceeded to have some jerking motion and immigration judge were called with transfer to the closest ER. In the emergency room they had actually witnessed a grand mal seizure. The patient has a swollen tongue. Denies chest pain. No increased work of breathing. No nausea, vomiting or diarrhea. No fever or chills. In the emergency room he had an MRI of the brain which was negative. Chest x- ray on admission shows that he has mild infrahilar infiltrates in the left, possibly on the right, bronchopneumonia cannot be excluded. His head CT shows negative exam. EKG on admission showed sinus tachycardia. In the emergency room his labs were drawn. He was found to have a potassium of 3.9, BUN of 9, creatinine 1.1. CK and CK-MB were elevated, creatine kinase was elevated, troponins were negative, noted albumin of 2.6, white count 17.6 with a hemoglobin of 14.7. His ABGs indicated a lactate of 6.6 on 2 L nasal cannula, otherwise ABGs appeared stable. Urinalysis is positive for 3+ proteinuria, hematuria, microscopic RBCs, microscopic WBCs, glucose trace, positive bacteria. Toxicology showed presumptive positive A cannabis. The patient was subsequently admitted to the ICU. He is under precautionary watch for seizures. He has clindamycin and Zosyn ordered. These are all dosed appropriately. Urine cultures are still currently pending. SOCIAL HISTORY: At this time he is living with his girlfriend at a friend's home. Denies tobacco or alcohol use though he has had exposure to secondhand smoke. FAMILY HISTORY: Is noncontributory. ALLERGIES: The patient is listed as no known drug allergies. HOME MEDICATIONS: Reconciled. States potassium chloride, prednisone and enalapril. REVIEW OF SYSTEMS: Times 10 with pertinent positives listed above in the HPI. VITAL SIGNS: Most recent. Temperature 98.8 degrees, blood pressure 148/89, heart rate 108, respirations 20, he is on 2 L nasal cannula, last recorded saturation is 100%, he has had 300 in, he has had 800 mL out to void. LABS: From this a.m. show sodium of 137, potassium 3.9, chloride 102, CO2 22, BUN is 9, creatinine 1.1, glucose of 132, anion gap of 13, calcium is 8.6, last CPK 605, last CK-MB 12.35. Negative troponin. Plasma lactate last checked was 4.2 up from 2.6. White count 17.6, hemoglobin 14.7, hematocrit 41.3, platelet count 356,000. The patient had a PT of 13.5, INR of 0.98, PTT 38.4. ABGs have already been mentioned. Urinalysis has already been mentioned. Toxicology has already been mention. PHYSICAL EXAM: This is a 23-year-old white male. He appears in no acute distress.Skin: Warm and dry. HEENT: Normocephalic, atraumatic. Conjunctiva is pale pink. He has FENG. Mucous membranes are dry. His tongue is swollen and thickened. Appears that he has evodemce of lacerations under the left side of his tongue possibly secondary to biting his tongue during witnessed seizure. Neck: Supple. Trachea midline. No JVD. Cardiovascular: He is regular rate and rhythm without murmur or gallop. Lungs: Clear to auscultation anterior. Equal excursion. He is currently on room air. Abdomen: Soft, nontender, positive bowel sounds. Genitourinary: Not inspected. Patient has been voiding, adequate amount documented. Extremities: Continues with 3+ lower extremity edema into his hips. No clubbing or cyanosis. ASSESSMENT AND PLAN: Nephrotic syndrome presumably secondary to his focal glomerulosclerosis diagnosed at [facility] per biopsy. The patient states that he finished his last rituximab intravenous infusion per Oncology last Saturday. He states that he has not taken his prednisone in almost 2 weeks. He has not ever picked up his omeprazole. He is taking his enalapril approximately every other day. His mother and father are at the bedside. Mother states that patient has insurance. He just has not picked up his medication. After speaking to primary care we will go ahead and start his prednisone at 60 mg p.o. We will start him on omeprazole 40 mg p.o. We will continue to monitor his labs. The patient has appearance of possible community- acquired versus aspirate pneumonia. The patient is currently on clindamycin and Zosyn dosed appropriately for pneumonia. I would like to thank you for allowing us to follow with this patient. Dictated by KISHOR Rizzo for Josep Clemente MD cc: KISHOR Rizzo MD [facility]
--- NOTE | 2018-09-05 21:19 | HISTORY AND PHYSICAL ---
CHIEF COMPLAINT: Fall. HISTORY OF PRESENT ILLNESS: This is a 23-year-old gentleman with a history of nephrotic syndrome, who presents to the emergency room after a fall. The mother stated that the patient was sitting on the couch with his CPAP in use. He started gasping for air, breathing funny, and he fell off the couch onto the floor. He did bite his tongue during this episode. He has no recollection. He was not incontinent of stool nor urine. On arrival to the emergency room, he was alert and oriented x3. The patient did have a witnessed seizure in the emergency room. Reportedly, he had tonic colonic movements. At this time he was given Ativan 2 mg IV, and his seizure activity stopped. CT of the head was negative. He was admitted to ICU for further evaluation and treatment. PAST MEDICAL HISTORY: 1. Nephrotic syndrome diagnosed at 18 months with the last exacerbation in 2014. He is followed by Dr. Clemente. 2. Pulmonary embolism. PAST SURGICAL HISTORY: Tonsillectomy, ACL repair of the right knee in 2007, a cyst removed from the chest wall. SOCIAL HISTORY: He denies alcohol, tobacco, or illicit drug use. He currently lives with his father. ALLERGIES: No known drug allergies. HOME MEDICATIONS: A list will be obtained by the nursing staff, and we will review and restart it as appropriate. REVIEW OF SYSTEMS: Discussed with the patient with pertinent positives stated in the HPI. He denied any syncope or dizziness, any palpitations, chest pain, cough, dyspnea, any PND or orthopnea, any nausea, vomiting, diarrhea, constipation, black or bloody vomitus or stools, hematuria, dysuria, frequency, urgency. PHYSICAL EXAMINATION: GENERAL: This is a 23-year-old gentleman who is lying flat in the bed in ICU in no distress. VITAL SIGNS: Blood pressure is 148/80 with a heart rate of 96, respirations are 20, temperature is 98.8 degrees with O2 saturation 100% on 2 L nasal cannula. EYES: Pupils are equal, round, react to light. EOMs are intact. Sclerae are anicteric. Mucous membranes are moist. NECK: Supple with trachea midline. CARDIOVASCULAR: Regular rate and rhythm. S1 and S2 appreciated. Calves are nontender. Peripheral pulses are palpable x4 extremities. PULMONARY: Breath sounds are clear with no increased work of breathing noted. Chest rises and falls symmetrically with respiration. Chest wall is nontender to palpation. GASTROINTESTINAL: Abdomen is soft, nontender, nondistended with bowel sounds in all 4 quadrants. NEUROLOGIC: He is alert and oriented x3. Pupils are equal, round, react to light with cranial nerves 2 through 12 grossly intact. LABORATORY DATA: WBC is 17.6 with hemoglobin 14.7, hematocrit 41.3, platelets of 356,000. Sodium is 137, potassium 3.9, BUN 9, creatinine 1.1 with a glucose of 132. CPK is elevated at 359 with CK-MB of 9.51. Troponins are negative on multiple occasions. He had a lactate of 2.6 with a repeat lactate of 4.2. IMAGIN. Chest x-ray revealed mild infrahilar infiltrate on the left and possibly on the right. Bronchial pneumonia cannot be excluded. 2. CT of the head revealed a negative exam. Ventricles and sulci are normal in size and contour. No intracranial mass or hemorrhage. The skull is intact. Sinuses, mastoids and middle ears are clear. 3. Brain MRI. There is no area of restricted diffusion. The ventricles and sulci are normal in size and contour. No intracranial mass or hemorrhage. Midline structures including the optic chiasm and pituitary are normal. MICROBIOLOGY DATA: Blood cultures and urine culture pending. ASSESSMENT AND PLAN: 1. Seizure. We will place him on seizure precautions. We will load with Keppra. We will verify the dose with Dr. Clemente. We will monitor. 2. Pneumonia. Blood cultures have been obtained. As there is a large chance that he aspirated during seizure activity, we will start clindamycin and Zosyn, and any further antibiotics will be culture driven. We will identify his home medications and continue these as appropriate. 3. Leukocytosis secondary to #1. 4. History of nephrotic syndrome. We will consult Dr. Clemente. 5. Further treatments pending hospital course. Dictated by KISHOR Melchor for Cristian Hall MD This chart was documented by, KISHOR Melchor and accurately reflects the services performed, treatment plan and medical decisions as attested by the providers signature Cristian Hall MD. cc: KISHOR Melchor MD
[2018-09-06] MEDS: CLINDAMYCIN 600 MG/D5W 600 MG/50 ML IVPB IV SCH ×3 (01:12→18:03)
--- NOTE | 2018-09-06 01:36 | HISTORY AND PHYSICAL ---
ADDENDUM: Patient is a 23-year-old male who has a known history of sleep apnea as well as nephrotic syndrome. He presented to the hospital after having an event at home in which he was sleeping with his CPAP and then suddenly started gasping for air, rolled off the couch and bit his tongue. He was reported to have shaking activity. While he was in the ER, he had a grand mal seizure. We will admit patient the hospital, ask Dr. Clemente for assistance with his nephrotic syndrome. The patient's CT and MRI brain currently are negative. We will start him on Keppra as he had 2 seizures. He does have pneumonia. We will place him on antibiotics and we will follow. Please see full note by nurse practitioner. cc: Cristian Hall MD
[2018-09-06] MEDS: ZOSYN 3.375 GM in NS 50 ML IV SCH ×4 (04:00→21:02)
[2018-09-06] MEDS ORDERED: KEPPRA 500 MG/NS 500 MG/100 ML IVPB IV SCH (06:00)
[2018-09-06 06:41] LABS: AGAP 16; ALBUMIN 1.9 g/dL (3.5-5.0); BUN 10 mg/dL (8-22); CALCIUM 7.4 mg/dL (8.8-10.2); CHLORIDE 101 mmol/L (98-107); COSMO 278; CREATININE 1.3 mg/dL (0.7-1.2); ESTIMATED GFR > 60; GLUCOSE 124 mg/dL (70-104); POTASSIUM 3.6 mmol/L (3.5-5.1); SODIUM 139 mmol/L (136-145); TCO2 22 mmol/L (25-35)
[2018-09-06] MEDS: PRILOSEC PO SCH (06:50)
[2018-09-06] MEDS: PREDNISONE PO SCH (08:58)
[2018-09-06 09:30] LABS: HEMATOCRIT 36.3 % (42.0-52.0); HEMOGLOBIN 12.9 g/dL (14.0-18.0); MCH 31.1 PG (27-31); MCHC 35.5 g/dL (33-37); MCV 87.5 FL (81-99); MPV 10.6 FL (7.4-10.4); RBC 4.15 XMIL (4.7-6.1); RDW 13.3 % (11.5-14.5); WBC 17.73 X1000 (4.8-10.8)
[2018-09-06 10:01] LABS: AGAP 13; ALBUMIN 2.1 g/dL (3.5-5.0); ALKALINE PHOSPHATASE 56 U/L (32-122); BUN 11 mg/dL (8-22); CALCIUM 7.5 mg/dL (8.8-10.2); CHLORIDE 99 mmol/L (98-107); COSMO 270; CREATININE 1.3 mg/dL (0.7-1.2); ESTIMATED GFR > 60; GLUCOSE 103 mg/dL (70-104); GOT 34 U/L (10-34); GPT 17 U/L (10-44); MAGNESIUM 2.1 mg/dL (1.5-2.7); POTASSIUM 3.7 mmol/L (3.5-5.1); SODIUM 135 mmol/L (136-145); TCO2 22 mmol/L (25-35); TOTAL PROTEIN 4.7 g/dL (6.3-8.3)
[2018-09-06] MEDS: KEPPRA PO SCH ×2 (10:47→21:02)
[2018-09-06] MEDS: COZAAR PO SCH (12:23)
--- NOTE | 2018-09-06 15:51 | NEPHROLOGY PROGRESS NOTE ---
DATE: 09/06/2018 TIME SEEN: 1015 hours. SUBJECTIVE: Mr. Dorado is resting quietly in bed. The head of the bed is slightly elevated. He remains on CPAP. His parents are at his bedside. He is in no acute distress. OBJECTIVE: Vital Signs: His most recent vital signs reveal a temp of 99, blood pressure 142/70, heart rate 100, and respirations 16. He is on 2 L per CPAP. Last recorded saturation was 95%. Input and Output: He has had 1,710 in and 1,475 out to void. LABS: Sodium is 139, potassium 3.6, chloride 101, CO2 22, BUN 10, creatinine 1.3, glucose 124, anion gap 16, calcium 7.4, phosphorous 4, and albumin 1.9. Previous hemoglobin was 14.7. Labs today are with a white count 17.73, hemoglobin 12.9, and hematocrit 36.3 with a platelet count of 309. PHYSICAL EXAM: General: This is a 23-year-old white male requesting quietly in bed. He appears chronically ill but in no acute distress. Skin: Warm and dry. HEENT: Normocephalic, atraumatic. Conjunctivae are pale pink. He has FENG. Mucous membranes are dry. Neck: Supple. Trachea midline. No evidence of JVD. Cardiovascular: Regular rate and rhythm with murmur gallop. Lungs: Clear to auscultation anteriorly with equal excursion. He remains on O2 per CPAP. Abdomen: Soft, round, and nontender. Positive bowel sounds. Genitourinary: Not inspected. The patient is voiding, adequate amount recorded. Extremities: He continues with 3+ edema from the lower extremities up into the hip region. No clubbing or cyanosis. ASSESSMENT AND PLAN: 1. 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 The patient's BUN and creatinine are fairly stable today with creatinine at 1.3. Adequate urine out. No indications for intervention. 2. Nephrotic syndrome with elevated proteinuria. The patient was started on his prednisone yesterday, 60 mg daily, along with omeprazole 40 mg daily. We will continue to monitor. 3. Hypertension. Patient is to be started on losartan 50 mg p.o. today. We will hold his enalapril. 4. Possible pneumonia, community-acquired versus aspiration. The patient is on clindamycin and Zosyn and followed by the primary care team. I would like to thank you for allowing us to follow with this patient. Dictated by KISHOR Rizzo for Josep Clemente MD cc: KISHOR Rizzo MD [facility]
[2018-09-07] MEDS: CLINDAMYCIN 600 MG/D5W 600 MG/50 ML IVPB IV SCH ×2 (00:28→09:33)
--- NOTE | 2018-09-07 01:05 | PROGRESS NOTE ---
DATE: 09/06/2018 SUBJECTIVE: Patient seems quite disinterested in answering questions. However, when his mom misspeaks he interjects. Prior to that, he is sitting with his eyes closed, not participating seemingly in the conversation. Denies any fevers or chills. Denies any focal numbness currently. Still feels a little short of breath. PHYSICAL EXAMINATION: Vital Signs: Temperature 98 degrees, pulse 104, respiratory 20, BP 163/66. General: Patient is awake, alert. He is currently in no respiratory distress. HEENT: Normocephalic. Neck: Supple. Cardiovascular: Regular rate. Chest: Clear. Abdomen: Soft, nondistended. Extremities: Moves all extremities. ASSESSMENT: 1. New onset seizure with a negative MRI, currently on Keppra. 2. Sedation. We will decrease Keppra from IV to p.o. 3. Pneumonia, likely aspiration. Most likely the pneumonia came after his 1st seizure, not the cause of it. cc: Cristian Hall MD
[2018-09-07] MEDS: ZOSYN 3.375 GM in NS 50 ML IV SCH (04:47)
[2018-09-07] MEDS: PRILOSEC PO SCH (06:25)
[2018-09-07 06:26] LABS: AGAP 10; ALBUMIN 2.2 g/dL (3.5-5.0); BUN 14 mg/dL (8-22); CALCIUM 7.7 mg/dL (8.8-10.2); CHLORIDE 102 mmol/L (98-107); COSMO 278; CREATININE 1.1 mg/dL (0.7-1.2); ESTIMATED GFR > 60; GLUCOSE 107 mg/dL (70-104); PHOSPHORUS 2.7 mg/dL (2.7-4.5); POTASSIUM 3.6 mmol/L (3.5-5.1); SODIUM 139 mmol/L (136-145); TCO2 27 mmol/L (25-35)
[2018-09-07] MEDS: KEPPRA PO SCH (09:33)
[2018-09-07] MEDS: PREDNISONE PO SCH (09:33)
[2018-09-07] MEDS: COZAAR PO SCH (09:34)
[2018-09-07 10:17] LABS: BASO# 0.02 X1000 (0.0-0.2); BASO% 0.1 % (0.0-0.8); EOS# 0.07 X1000 (0.0-0.7); EOS% 0.5 % (0.0-10.0); HEMATOCRIT 37.7 % (42.0-52.0); HEMOGLOBIN 12.8 g/dL (14.0-18.0); IMM GRAN# 0.06 X1000 (0.0-0.04); IMM GRAN% 0.4 % (0.0-0.5); LYMPH# 2.82 X1000 (1.2-3.4); LYMPH% 20.4 % (20.5-51.1); MCH 30.3 PG (27-31); MCV 89.1 FL (81-99); MONO% 10.2 % (1.7-9.3); MPV 10.1 FL (7.4-10.4); NEUT# 9.42 X1000 (1.4-6.5); NEUT% 68.4 % (42.2-75.2); PLT 296 X1000 (130-400); RBC 4.23 XMIL (4.7-6.1); RDW 13.7 % (11.5-14.5); WBC 13.79 X1000 (4.8-10.8)
[2018-09-07 10:38] LABS: AGAP 11; ALBUMIN 2.2 g/dL (3.5-5.0); ALKALINE PHOSPHATASE 53 U/L (32-122); BUN 13 mg/dL (8-22); CALCIUM 7.8 mg/dL (8.8-10.2); CHLORIDE 105 mmol/L (98-107); COSMO 283; CREATININE 1.1 mg/dL (0.7-1.2); ESTIMATED GFR > 60; GLUCOSE 99 mg/dL (70-104); GOT 113 U/L (10-34); GPT 22 U/L (10-44); POTASSIUM 3.4 mmol/L (3.5-5.1); SODIUM 142 mmol/L (136-145); TCO2 26 mmol/L (25-35); TOTAL PROTEIN 4.8 g/dL (6.3-8.3)
[2018-09-07 13:21] VITALS: BP 147/60
--- NOTE | 2018-09-07 14:15 | NEPHROLOGY PROGRESS NOTE ---
DATE: 09/07/2018 SUBJECTIVE: Patient states that he is feeling better. He is ready for discharge. Does not want to go with his mother to [place]. Otherwise no complaints. OBJECTIVE: His most recent vital signs his temperature is 98 degrees, blood pressure 152/84, heart rate 74, respirations 16, he is on room air, last recorded saturation 98%, he has had 1470 in, 525 out. His SpO2 on 2 L of CPAP was 96%. He is currently on room air. LABS: Sodium 139, potassium 3.6, chloride 102, CO2 27, BUN 14, creatinine is 1.1, glucose 107, anion gap 10, calcium is 7.7, phosphorus 2.7, albumin is 2.2, previous hemoglobin 12.9. PHYSICAL EXAM: This is a 23-year-old white male resting quietly in bed, no acute distress.Skin: Warm and dry. HEENT: Normocephalic, atraumatic. Conjunctivae pale pink, he has FENG. Mucous membranes are dry. Neck: Supple. Trachea midline. No evidence of JVD. Cardiovascular: Regular rate and rhythm. He has without murmur or gallop. Lungs: Clear to auscultation bilateral. Equal excursion. He is on room air. Abdomen: Soft, nontender. Positive bowel sounds. Genitourinary: Adequate void to urinal, recorded amount good. Extremities: He is down to 2+ lower extremity edema. His hip region has improved on his swelling. No clubbing or cyanosis. Neurological: He is alert and oriented x3. ASSESSMENT AND PLAN: 1. 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 Patient's BUN and creatinine remain stable, adequate urine out. He has been started on prednisone 60 mg daily with omeprazole 40 mg daily. He is now taking losartan 50 mg daily and to continue on 40 mg Lasix p.r.n. for swelling for weight of 2 to 4 pounds above last dry weight in 1 to 2 days. 2. Hypertension. Patient is now on losartan 50 mg daily. 3. Pneumonia. Patient remains on Zosyn IV and clindamycin. This is to be changed to oral upon discharge. I would like to thank you for allowing us to follow with this patient. Dictated by KISHOR Rizzo for Josep Clemente MD cc: KISHOR Rizzo MD
--- NOTE | 2018-09-07 18:03 | DISCHARGE SUMMARY ---
ADMISSION DATE: 09/05/2018 DISCHARGE DATE: 09/07/2018 DIAGNOSES: 1. Seizure, new onset. 2. Pneumonia. 3. Leukocytosis secondary to #1. 4. History of nephrotic syndrome. DIAGNOSTICS: 1. CT of the head revealed negative exam. 2. Brain MRI revealed negative exam. There are no restricted diffusion. The ventricles and sulci are normal in size and contour. No intracranial mass or hemorrhage. Midline structures including the optic chiasm and pituitary are normal. 3. Microbiology: Blood cultures x2 revealed no growth after 48 hours. 4. Urine culture revealed no growth. 5. Chest x-ray revealed mild hilar infiltrate on the left and possibly on the right. Bronchopneumonia cannot be excluded. CONSULTS: Dr. Josep Clemente, Nephrology. HOSPITAL COURSE: Mr. Dorado presented to the emergency room after having what was described as a grand mal seizure that was witnessed by his mother. EMS was called. Reportedly the patient was not postictal. He was not incontinent of stool or urine. He did bite his tongue during the episode. He did have a witnessed tonic colonic seizure in the emergency room, being given Ativan 2 mg IV and seizure activity stopped. CT of the head and MRI of the brain were both negative. He was started on Keppra 500 mg b.i.d. He has had no further seizure activity while in the hospital. He did have bilateral infiltrates noted on his chest x-ray and there is a good chance he aspirated during the seizure activity. Blood cultures were obtained which were negative and he was started on Zosyn for antibiotic coverage. We have transitioned him to Omnicef and clindamycin on discharge. Today he is awake. He is alert. He has had no further seizure activity. He has no complaints and thankfully he is ready for discharge. Medications were adjusted per Dr. Clemente and we will continue these on discharge. DISCHARGE VITAL SIGNS: Blood pressure is 147/60, with a heart rate of 80, respirations are 18, temperature is 98.9 degrees, with room air saturations 98 to 100%. PHYSICAL EXAMINATION: Cardiovascular: Regular rate and rhythm. S1 and S2 appreciated. Pulmonary: Breath sounds are clear with no increased work of breathing noted. Gastrointestinal: Abdomen is soft, nontender, nondistended. Bowel sounds in all 4 quadrants. : He has no CVA nor suprapubic tenderness. Skin: Warm and dry. Extremities: He does have lower extremity edema up into his hips. DISCHARGE MEDICATIONS: Prednisone 60 mg p.o. daily, omeprazole 40 mg p.o. daily, Cozaar 50 mg p.o. daily, Keppra 500 mg p.o. b.i.d., Lasix 40 mg p.o. p.r.n. 2-4 pound weight gain in 1-2 days, clindamycin 300 mg p.o. q.8 hours x5 days. FOLLOW UP: 1. Dr. Nichols, Neurology. He needs to call the office Saturday to schedule an appointment. 2. Dr. Josep Clemente. The office will contact the patient with a follow-up appointment. He is being discharged home in stable condition with family members. TIME SPENT: This is a greater than 30 minute discharge. Dictated by KISHOR Melchor for Cristian Hall MD This chart was documented by, KISHOR Melchor and accurately reflects the services performed, treatment plan and medical decisions as attested by the providers signature Cristian Hall MD. cc: KISHOR Melchor MD
--- NOTE | 2018-09-07 18:48 | DISCHARGE SUMMARY ---
ADMISSION DATE: 09/05/2018 DISCHARGE DATE: 09/07/2018 ADDENDUM: Patient seen and examined by myself, full note dictated and discussed with nurse practitioner. On discharge patient is awake, alert, he is in no distress. Notes he is able to ambulate without difficulty feels much better. Denies any chest pain, palpitation. Denies any fevers. States he still has a mild cough but also is improving. The patient will be discharged home. He will continue antibiotics, breathing treatments as needed at home. He will continue medications for seizures. He will follow up outpatient with treatment facility of choice. Discussed with him he needs follow up with Neurology for an outpatient EEG. Please see full note. cc: Cristian Hall MD
== END 2018-09-07 14:15 | disposition home or self-care (01) | DRG 100 ==
LOC: P.ED 07:24 → P.MEDSURG 07:25 → P.ICU 11:09
PROVIDERS: ATTEND Family Medicine
CPT/HCPCS: 70450; 70551; 71010; 71045; 80053; 80069; 80104; 80301; 80305; 80307; 80320; 81001; 82055; 82550; 82553; 82805; 83605; 83735; 84484; 85025; 85027; 85610; 85730; 87040; 87088; 93005; 94799; 96361; 96374; 99285; A9270; G0431; G0434; G0477; G0480; G6040; J1953; J2060; J2543; J7030; J7506; J7512